=== PATIENT | female | born 1985 | race Caucasian/White ===

== ENCOUNTER 2017-04-26 11:50 | Emergency (ER) | payer BC ==
[2017-04-26 12:00] VITALS: BP 141/83
[2017-04-26] MEDS ORDERED: Aspirin 81 MG Tab.Chew PO ONE (12:03)
[2017-04-26] MEDS ORDERED: Sodium Chloride 0.9% 10 ML Syringe FLUSH PRN (12:03)
--- NOTE | 2017-04-26 12:12 | EDM.PDOC ---
ED HPI GENERAL MEDICAL PROBLEM - General Chief Complaint: Chest Pain Stated Complaint: CHEST PAIN Time Seen by Provider: 04/26/17 11:59 Source of Information: Reports: Patient History Limitations: Reports: No Limitations - History of Present Illness INITIAL COMMENTS - FREE TEXT/NARRATIVE: The patient presents with left sided chest pain. This all started today. She feels short of breath with it. It feels like pressure. She has chills but no documented fever. She does have body aches. She has been coughing for a few days. She does smoke. She has no history of DVT or PE. She has no history of heart disease, HTN, or hypercholesterolemia. Onset: Sudden Duration: Hour(s): Location: Reports: Chest Quality: Reports: Pressure Severity: Moderate Improves with: Reports: None Worsens with: Reports: None Associated Symptoms: Reports: Chest Pain, Cough, cough w sputum, Fever/Chills, Shortness of Breath. Denies: Headaches, Nausea/Vomiting Mid-Sternal Pain Score (Numeric/FACES): 5 - Related Data Allergies Allergy/AdvReac Type Severity Reaction Status Date / Time No Known Allergies Allergy Verified 04/26/17 12:00 Home Meds: Home Meds Levothyroxine [Synthroid] 50 mcg PO DAILY 05/14/16 [History] Past Medical History Genitourinary History: Reports: Renal Calculus Musculoskeletal History: Reports: Other (See Below) Other Musculoskeletal History: chronic hip pain Neurological History: Reports: Headaches, Chronic Psychiatric History: Reports: Anxiety Endocrine/Metabolic History: Reports: Hypothyroidism Social & Family History - Family History Family Medical History: Noncontributory - Tobacco Use Smoking Status *Q: Current Every Day Smoker Years of Tobacco use: 13 Packs/Tins Daily: 0.2 - Caffeine Use Caffeine Use: Reports: None - Recreational Drug Use Recreational Drug Use: No - Living Situation & Occupation Living situation: Reports: Single, with Significant Other Occupation: Employed ED ROS GENERAL - Review of Systems Review Of Systems: See Below Constitutional: Reports: Chills, Malaise, Weakness. Denies: Fever HEENT: Reports: No Symptoms Respiratory: Reports: Shortness of Breath, Cough Cardiovascular: Reports: Chest Pain Endocrine: Reports: Fatigue GI/Abdominal: Reports: No Symptoms : Reports: No Symptoms Musculoskeletal: Reports: No Symptoms ED EXAM, GENERAL - Physical Exam Exam: See Below Exam Limited By: No Limitations General Appearance: Alert, No Apparent Distress Ears: Normal External Exam Nose: Normal Inspection Head: Atraumatic, Normocephalic Neck: Normal Inspection Respiratory/Chest: No Respiratory Distress, Lungs Clear, Normal Breath Sounds Cardiovascular: Regular Rate, Rhythm, No Edema, No Murmur GI/Abdominal: Soft, Non-Tender, No Organomegaly, No Mass Back Exam: Normal Inspection Extremities: Normal Inspection Neurological: Alert, Oriented, No Motor/Sensory Deficits EKG INTERPRETATION EKG Date: 04/26/17 Time: 11:59 Rhythm: NSR Rate (Beats/Min): 89 [place]: Normal P-Wave: Present QRS: Normal ST-T: Normal QT: Normal Course - Vital Signs Last Recorded V/S: Last Vital Signs Temp 97.9 F 04/26/17 11:57 Pulse 89 04/26/17 11:57 Resp 17 04/26/17 11:57 BP 141/83 H 04/26/17 11:57 Pulse Ox 99 04/26/17 11:57 - Orders/Labs/Meds Orders: Active Orders 24 hr Category Date Time Status Cardiac Monitoring [RC] . DIRECTED Care 04/26/17 12:03 Active EKG Documentation Completion [RC] STAT Care 04/26/17 12:06 Active Peripheral IV Care [RC] . DIRECTED Care 04/26/17 12:06 Active Chest 2V [CR] Stat Exams 04/26/17 12:06 Taken Sodium Chloride 0.9% [Saline Flush] Med 04/26/17 12:03 Active 10 ml FLUSH ASDIRECTED PRN Peripheral IV Insertion Adult [OM.PC] Stat Oth 04/26/17 12:03 Ordered Medication Orders Sodium Chloride (Saline Flush) 10 ml FLUSH ASDIRECTED PRN PRN Reason: Keep Vein Open Last Admin: 04/26/17 12:31 Dose: 10 ml Labs: Laboratory Tests 04/26/17 04/26/17 04/26/17 Range/Units 12:45 12:45 12:45 WBC 13.50 H (3.98-10.04) K/mm3 RBC 4.66 (3.98-5.22) M/mm3 Hgb 14.1 (11.2-15.7) gm/L Hct 40.9 (34.1-44.9) % MCV 87.8 (79.4-94.8) fl MCH 30.3 (25.6-32.2) pg MCHC 34.5 (32.2-35.5) g/dl RDW Std Deviation 40.6 (36.4-46.3) fL Plt Count 293 (182-369) K/mm3 MPV 8.9 L (9.4-12.3) fl Neut % (Auto) 73.4 H (34.0-71.1) % Lymph % (Auto) 17.8 L (19.3-51.7) % [place] % (Auto) 7.3 (4.7-12.5) % Eos % (Auto) 1.0 (0.7-5.8) Baso % (Auto) 0.2 (0.1-1.2) % Neut # (Auto) 9.91 H (1.56-6.13) K/mm3 Lymph # (Auto) 2.40 (1.18-3.74) K/mm3 [place] # (Auto) 0.99 H (0.24-0.36) K/mm3 Eos # (Auto) 0.13 (0.04-0.36) K/mm3 Baso # (Auto) 0.03 (0.01-0.08) K/mm3 D-Dimer, Quantitative 0.27 (0.19-0.59) mg/L Sodium 141 (136-145) mEq/L Potassium 3.5 (3.5-5.1) mEq/L Chloride 103 (98-107) mEq/L Carbon Dioxide 24 (21-32) mEq/L Anion Gap 17.5 H (5-15) BUN 10 (7-18) mg/dL Creatinine 0.7 (0.55-1.02) mg/dL Est Cr Clr Drug Dosing 97.21 mL/min Estimated GFR (MDRD) > 60 (>60) mL/min BUN/Creatinine Ratio 14.3 (14-18) Glucose 91 (74-106) mg/dL Calcium 9.1 (8.5-10.1) mg/dL Total Bilirubin 1.1 H (0.2-1.0) mg/dL AST 24 (15-37) U/L ALT 44 (14-59) U/L Alkaline Phosphatase 81 (46-116) U/L Troponin I < 0.017 (0.00-0.056) ng/mL Total Protein 7.7 (6.4-8.2) g/dl Albumin 3.9 (3.4-5.0) g/dl Globulin 3.8 gm/dL Albumin/Globulin Ratio 1.0 (1-2) Meds: Medications Generic Name Dose Route Start Last Admin Trade Name Jin PRN Reason Stop Dose Admin Sodium Chloride 10 ml 04/26/17 12:03 04/26/17 12:31 Saline Flush FLUSH 10 ml ASDIRECTED PRN Administration Keep Vein Open Discontinued Medications Generic Name Dose Route Start Last Admin Trade Name Freq PRN Reason Stop Dose Admin Aspirin 324 mg 04/26/17 12:03 04/26/17 12:31 Aspirin PO 04/26/17 12:04 324 mg ONETIME ONE Administration - Re-Assessments/Exams Free Text/Narrative Re-Assessment/Exam: 04/26/17 12:13 I ordered an IV saline lock, aspirin 324mg PO, CXR, EKG and labs. Her EKG shows a NSR with no acute changes. 04/26/17 14:01 Her CXR looks good. Her WBC was elevated at 13.5. Her D-dimer was negative. Her CMP was negative and her troponin was negative. Departure - Departure Time of Disposition: 14:05 Disposition: Home, Self-Care 01 Condition: Good Clinical Impression: Left sided chest pain, Bronchitis Referrals: Marlen Sanchez PA-C [Primary Care Provider] - 1 Week Forms: ED Department Discharge, ED Return to Work/School Form Additional Instructions: Take the medication as prescribed. Get some rest the next 2 days and drink plenty of fluids. Take motrin or aleve for any pain or fever. - My Orders Last 24 Hours: My Active Orders 04/26/17 12:03 Cardiac Monitoring [RC] . DIRECTED Sodium Chloride 0.9% [Saline Flush] 10 ml FLUSH ASDIRECTED PRN Peripheral IV Insertion Adult [OM.PC] Stat 04/26/17 12:06 EKG Documentation Completion [RC] STAT Peripheral IV Care [RC] . DIRECTED Chest 2V [CR] Stat - Assessment/Plan Last 24 Hours: My Active Orders 04/26/17 12:03 Cardiac Monitoring [RC] . DIRECTED Sodium Chloride 0.9% [Saline Flush] 10 ml FLUSH ASDIRECTED PRN Peripheral IV Insertion Adult [OM.PC] Stat 04/26/17 12:06 EKG Documentation Completion [RC] STAT Peripheral IV Care [RC] . DIRECTED Chest 2V [CR] Stat
--- NOTE | 2017-04-26 14:25 | CR ---
Chest: Two views of the chest were obtained. Comparison: No prior chest x-ray. Right ventricle appears somewhat prominent. Upper mediastinum is normal. Lungs are clear. Bony structures are unremarkable. Impression: 1. Slightly prominent right ventricle is suggested. Echocardiogram could be obtained to further evaluate this possible finding. 2. Nothing acute is otherwise seen on two-view chest x-ray. Diagnostic code #3
== END 2017-04-26 14:19 | disposition home or self-care (01) ==
LOC: JD.ED 11:50
DX: J40 Bronchitis, not specified as acute or chronic (principal); F17.210 Nicotine dependence, cigarettes, uncomplicated; E03.9 Hypothyroidism, unspecified; Z79.899 Other long term (current) drug therapy
CPT/HCPCS: 36415; 71046; 80053; 84484; 85025; 85379; 87804; 93005; 99285; A9270; J7050; 93010; 99283

== ENCOUNTER 2017-05-22 12:07 | Emergency (ER) | payer BC, SELFPAY ==
[2017-05-22 12:25] VITALS: BP 149/89
--- NOTE | 2017-05-22 12:48 | EDM.PDOC ---
ED HPI GENERAL MEDICAL PROBLEM - General Chief Complaint: Respiratory Problem Stated Complaint: SOB/CHEST PAIN FROM COUGH Time Seen by Provider: 05/22/17 12:35 Source of Information: Reports: Patient, RN Notes Reviewed - History of Present Illness INITIAL COMMENTS - FREE TEXT/NARRATIVE: 32-year-old female comes in with severe cough. This started several days ago, is becoming more portion frequent. Pain in her upper chest with coughing. Sleep dry and nonproductive. Occasionally productive of yellowish phlegm. She's had no fever with this. No current headache. No major sore throat other than irritation from coughing. Very mild nasal congestion only. 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: Musculoskeletal History: Reports: Other (See Below) Other Musculoskeletal History: chronic hip pain Neurological History: Reports: Headaches, Chronic Psychiatric History: Reports: Anxiety Endocrine/Metabolic History: Reports: Hypothyroidism Social & Family History - Family History Family Medical History: Noncontributory - Tobacco Use Smoking Status *Q: Current Every Day Smoker Years of Tobacco use: 12 Packs/Tins Daily: 0.3 Used Tobacco, but Quit: No Second Hand Smoke Exposure: No - Caffeine Use Caffeine Use: Reports: Energy Drinks - Recreational Drug Use Recreational Drug Use: No - Living Situation & Occupation Living situation: Reports: Single, with Significant Other Occupation: Employed ED ROS GENERAL - Review of Systems Review Of Systems: See Below Constitutional: Denies: Fever, Chills, Diaphoresis HEENT: Reports: Rhinitis, Throat Pain (Mild irritation from coughing) Respiratory: Reports: Pleuritic Chest Pain, Cough, Sputum (Mostly dry and nonproductive). Denies: Shortness of Breath (Minimal) Cardiovascular: Reports: Chest Pain (With coughing) GI/Abdominal: Denies: Abdominal Pain, Vomiting Musculoskeletal: Reports: No Symptoms Skin: Reports: No Symptoms Neurological: Reports: No Symptoms ED EXAM, GENERAL - Physical Exam Exam: See Below General Appearance: Alert, No Apparent Distress Nose: Normal Inspection Throat/Mouth: Normal Inspection, Normal Oropharynx Head: No: Facial Swelling Neck: Supple, Full Range of Motion Respiratory/Chest: No Respiratory Distress, Lungs Clear, Normal Breath Sounds. No: Rhonchi, Wheezing Cardiovascular: Regular Rate, Rhythm Extremities: Normal Inspection Neurological: Alert, Oriented, No Motor/Sensory Deficits Skin Exam: Warm, Dry, Normal Color Course - Vital Signs Last Recorded V/S: Last Vital Signs Temp 97.8 F 05/22/17 12:22 Pulse 85 05/22/17 12:22 Resp 18 05/22/17 12:22 BP 149/89 H 05/22/17 12:22 Pulse Ox 100 05/22/17 12:22 Departure - Departure Time of Disposition: 12:46 Disposition: Home, Self-Care 01 Condition: Fair Clinical Impression: Bronchitis - Discharge Information Referrals: Marlen Sanchez PA-C [Primary Care Provider] - Forms: ED Department Discharge Additional Instructions: A prior 0 steam as needed, Z-Adelso as prescribed, you may also use albuterol inhaler 2 puffs every 4-6 hours as needed for severe cough or difficulty breathing, you may safely return to work tomorrow as long as you are not running a fever.
== END 2017-05-22 13:05 | disposition home or self-care (01) ==
LOC: JD.ED 12:07
DX: J40 Bronchitis, not specified as acute or chronic (principal); E03.9 Hypothyroidism, unspecified; F41.9 Anxiety disorder, unspecified; F17.210 Nicotine dependence, cigarettes, uncomplicated; Z79.899 Other long term (current) drug therapy; Z87.442 Personal history of urinary calculi
CPT/HCPCS: 99283

== ENCOUNTER 2017-12-08 16:03 | Emergency (ER) | payer BC ==
[2017-12-08 16:41] VITALS: BP 139/72
--- NOTE | 2017-12-08 17:23 | EDM.PDOC ---
ED HPI GENERAL MEDICAL PROBLEM - General Chief Complaint: Abdominal Pain Stated Complaint: STOMACH PAINS Time Seen by Provider: 12/08/17 17:27 Source of Information: Reports: Patient History Limitations: Reports: No Limitations - History of Present Illness INITIAL COMMENTS - FREE TEXT/NARRATIVE: 32 year old female presents for evaluation and treatment of abdominal pain. Reports the pain has been present the last 1-2 weeks. Patient was seen in the clinic yesterday, she had labs and an abdominal xray done. Treated with lopermide, which she has not picked up due to costs concerns. Was given fluids and toradol in the clinic yesterday, reports no relief of symptoms. Patient reports last night her abdominal pain greatly worsened. She contacted the clinic today and was instructed to come to the ER for a CT scan. She is currently experiencing pain to the lower abdomen, bilateral. She reports symptoms of nausea, no vomiting. She reports she has had diarrhea but only one loose stool today, no blood in her stool. Reports a headache and fatigue. No fevers. History of an anal fissure which has improved on its own. Did not require surgery. Experienced pain last night due to the increased stools. No blood. Denies any recent antibiotic usage. Denies any recent travel. States she was in [place] in July. Head Pain Score (Numeric/FACES): 4 Bilateral Lower Abdomen Pain Score (Numeric/FACES): 2 - Related Data Allergies Allergy/AdvReac Type Severity Reaction Status Date / Time No Known Allergies Allergy Verified 04/26/17 12:00 Home Meds: Home Meds Levothyroxine [Synthroid] 50 mcg PO DAILY 05/14/16 [History] Ciprofloxacin [Cipro XR] 500 mg PO DAILY #10 tab.er 12/08/17 [Rx] Dicyclomine [Bentyl] 20 mg PO TID PRN #20 tab 12/08/17 [Rx] Ondansetron [Zofran ODT] 4 mg PO Q6HR PRN 12/08/17 [History] Past Medical History Respiratory History: Reports: Bronchitis, Recurrent Gastrointestinal History: Reports: GI Bleed, Hemorrhoids Genitourinary History: Reports: Renal Calculus 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: Musculoskeletal History: Reports: Other (See Below) Other Musculoskeletal History: chronic hip pain Neurological History: Reports: Headaches, Chronic Psychiatric History: Reports: Anxiety, Depression Endocrine/Metabolic History: Reports: Hypothyroidism Social & Family History - Family History Family Medical History: Noncontributory - Tobacco Use Smoking Status *Q: Current Every Day Smoker Years of Tobacco use: 12 Packs/Tins Daily: 0.5 Used Tobacco, but Quit: No Second Hand Smoke Exposure: Yes - Caffeine Use Caffeine Use: Reports: Energy Drinks - Alcohol Use Days Per Week of Alcohol Use: 3 Number of Drinks Per Day: 6 Total Drinks Per Week: 18 Date of Last Drink: 12/05/17 - Recreational Drug Use Recreational Drug Use: No - Living Situation & Occupation Living situation: Reports: Single, with Significant Other Occupation: Employed ED ROS GENERAL - Review of Systems Review Of Systems: See Below Constitutional: Reports: Chills, Fatigue. Denies: Fever GI/Abdominal: Reports: Abdominal Pain (lower bilateral abdomen), Diarrhea (x1 today), Nausea. Denies: Hematochezia, Melena, Vomiting Neurological: Reports: Headache ED EXAM, GI/ABD - Physical Exam Exam: See Below Exam Limited By: No Limitations General Appearance: Alert, WD/WN, No Apparent Distress, Obese Throat/Mouth: Normal Inspection, Normal Voice, No Airway Compromise Respiratory/Chest: No Respiratory Distress, Lungs Clear, Normal Breath Sounds Cardiovascular: Normal Peripheral Pulses, Regular Rate, Rhythm, No Murmur GI/Abdominal Exam: Normal Bowel Sounds, Soft, Non-Tender Neurological: Alert, Oriented, Normal Cognition Psychiatric: Normal Affect, Normal Mood Skin Exam: Warm, Dry, Normal Color Course - Vital Signs Last Recorded V/S: Last Vital Signs Temp 97.7 F 12/08/17 16:36 Pulse 75 12/08/17 16:36 Resp 20 12/08/17 16:36 BP 139/72 12/08/17 16:36 Pulse Ox 97 12/08/17 16:36 - Orders/Labs/Meds Labs: Laboratory Tests 12/08/17 12/08/17 12/08/17 Range/Units 16:55 16:55 16:55 WBC 8.00 (3.98-10.04) K/mm3 RBC 4.92 (3.98-5.22) M/mm3 Hgb 14.9 (11.2-15.7) gm/L Hct 43.6 (34.1-44.9) % MCV 88.6 (79.4-94.8) fl MCH 30.3 (25.6-32.2) pg MCHC 34.2 (32.2-35.5) g/dl RDW Std Deviation 41.9 (36.4-46.3) fL Plt Count 305 (182-369) K/mm3 MPV 8.8 L (9.4-12.3) fl Neut % (Auto) 67.8 (34.0-71.1) % Lymph % (Auto) 20.6 (19.3-51.7) % [place] % (Auto) 7.4 (4.7-12.5) % Eos % (Auto) 3.3 (0.7-5.8) Baso % (Auto) 0.3 (0.1-1.2) % Neut # (Auto) 5.43 (1.56-6.13) K/mm3 Lymph # (Auto) 1.65 (1.18-3.74) K/mm3 [place] # (Auto) 0.59 H (0.24-0.36) K/mm3 Eos # (Auto) 0.26 (0.04-0.36) K/mm3 Baso # (Auto) 0.02 (0.01-0.08) K/mm3 Sodium 142 (136-145) mEq/L Potassium 3.8 (3.5-5.1) mEq/L Chloride 107 (98-107) mEq/L Carbon Dioxide 28 (21-32) mEq/L Anion Gap 10.8 (5-15) BUN 9 (7-18) mg/dL Creatinine 0.8 (0.55-1.02) mg/dL Est Cr Clr Drug Dosing 86.93 mL/min Estimated GFR (MDRD) > 60 (>60) mL/min BUN/Creatinine Ratio 11.3 L (14-18) Glucose 87 (74-106) mg/dL Calcium 8.7 (8.5-10.1) mg/dL Total Bilirubin 1.1 H (0.2-1.0) mg/dL GGT 35 (5-55) U/L AST 36 (15-37) U/L ALT 43 (14-59) U/L Alkaline Phosphatase 89 (46-116) U/L C-Reactive Protein 2.5 H* (<1.0) mg/dL Total Protein 7.2 (6.4-8.2) g/dl Albumin 3.6 (3.4-5.0) g/dl Globulin 3.6 gm/dL Albumin/Globulin Ratio 1.0 (1-2) Lipase 65 L (73-393) U/L HCG, Qual (NEGATIVE) 12/08/17 Range/Units 16:55 WBC (3.98-10.04) K/mm3 RBC (3.98-5.22) M/mm3 Hgb (11.2-15.7) gm/L Hct (34.1-44.9) % MCV (79.4-94.8) fl MCH (25.6-32.2) pg MCHC (32.2-35.5) g/dl RDW Std Deviation (36.4-46.3) fL Plt Count (182-369) K/mm3 MPV (9.4-12.3) fl Neut % (Auto) (34.0-71.1) % Lymph % (Auto) (19.3-51.7) % [place] % (Auto) (4.7-12.5) % Eos % (Auto) (0.7-5.8) Baso % (Auto) (0.1-1.2) % Neut # (Auto) (1.56-6.13) K/mm3 Lymph # (Auto) (1.18-3.74) K/mm3 [place] # (Auto) (0.24-0.36) K/mm3 Eos # (Auto) (0.04-0.36) K/mm3 Baso # (Auto) (0.01-0.08) K/mm3 Sodium (136-145) mEq/L Potassium (3.5-5.1) mEq/L Chloride (98-107) mEq/L Carbon Dioxide (21-32) mEq/L Anion Gap (5-15) BUN (7-18) mg/dL Creatinine (0.55-1.02) mg/dL Est Cr Clr Drug Dosing mL/min Estimated GFR (MDRD) (>60) mL/min BUN/Creatinine Ratio (14-18) Glucose (74-106) mg/dL Calcium (8.5-10.1) mg/dL Total Bilirubin (0.2-1.0) mg/dL GGT (5-55) U/L AST (15-37) U/L ALT (14-59) U/L Alkaline Phosphatase (46-116) U/L C-Reactive Protein (<1.0) mg/dL Total Protein (6.4-8.2) g/dl Albumin (3.4-5.0) g/dl Globulin gm/dL Albumin/Globulin Ratio (1-2) Lipase (73-393) U/L HCG, Qual Negative (NEGATIVE) Meds: Medications Discontinued Medications Generic Name Dose Route Start Last Admin Trade Name Freq PRN Reason Stop Dose Admin Dicyclomine HCl 20 mg 12/08/17 17:46 12/08/17 18:12 Bentyl IM 12/08/17 17:47 20 mg ONETIME ONE Administration Diphenhydramine HCl 50 mg 12/08/17 19:40 Benadryl IVPUSH 12/08/17 19:41 ONETIME ONE Haloperidol Lactate 5 mg 12/08/17 19:40 Haldol IM 12/08/17 19:41 ONETIME ONE Hydromorphone HCl 0.5 mg 12/08/17 19:39 Dilaudid IVPUSH 12/08/17 19:40 ONETIME ONE Sodium Chloride 1,000 mls @ 999 mls/hr 12/08/17 17:46 12/08/17 18:15 Normal Saline IV 12/08/17 18:46 999 mls/hr ONETIME ONE Administration Ketorolac Tromethamine 30 mg 12/08/17 17:46 12/08/17 18:12 Toradol IVPUSH 12/08/17 17:47 30 mg ONETIME ONE Administration Ondansetron HCl 4 mg 12/08/17 17:46 12/08/17 18:12 Zofran IVPUSH 12/08/17 17:47 4 mg ONETIME ONE Administration Sodium Chloride 10 ml 12/08/17 17:46 12/08/17 18:39 Saline Flush FLUSH 10 ml ASDIRECTED PRN Administration Keep Vein Open Sumatriptan Succinate 25 mg 12/08/17 18:56 12/08/17 19:01 Imitrex PO 12/08/17 18:57 25 mg ONETIME ONE Administration - Re-Assessments/Exams Free Text/Narrative Re-Assessment/Exam: 12/08/17 18:45 Checked on the patient. I reviewed her labs with her. I do not feel she needs a CT scan. She likely has a gastroenteritis causing her discomfort. Recommended symptomatic care including a probiotic. Will give additional medication for a headache. Imitrex ordered. 12/08/17 19:41 Checked on the patient. Reports no relief of headache. Reports continued abdominal discomfort. She has had no vomiting or diarrhea since entering the ED. Offered additional medication for headache and discomfort relief. She declined. She would like to go home. Will discharge at this time. Discharge instructions as documented. Departure - Departure Time of Disposition: 19:49 Disposition: Home, Self-Care 01 Condition: Good Clinical Impression: Gastroenteritis - Discharge Information *PRESCRIPTION DRUG MONITORING PROGRAM REVIEWED*: No *COPY OF PRESCRIPTION DRUG MONITORING REPORT IN PATIENT WILLIAM: No Prescriptions: Ciprofloxacin [Cipro XR] 500 mg PO DAILY #10 tab.er Dicyclomine [Bentyl] 20 mg PO TID PRN #20 tab PRN Reason: Abdominal Pain Instructions: Viral Gastroenteritis, Adult Referrals: Marlen Sanchez PA-C [Primary Care Provider] - Forms: ED Department Discharge Additional Instructions: Recommend a probiotic, these are available OTC. Recommend clear fluids, may advance to a bland diet as tolerated. Recommend bread, rice, applesause, bananas, etc. Follow-up in the clinic if not much better within 1 week. Continue to take the zofran as prescribed as needed for nausea. Take the bentyl 1 tab PO tid prn abdominal pain and cramping. Take the ciprofloxacin if the diarrhea returns. Take 1 tab PO bid x 5 days. Please return to the ER should your symptoms change or worsen.
[2017-12-08] MEDS ORDERED: Ketorolac 30 MG/ML SDV IVPUSH ONE (17:46)
[2017-12-08] MEDS ORDERED: Sodium Chloride 0.9% 10 ML Syringe FLUSH PRN (17:46)
[2017-12-08] MEDS ORDERED: Ondansetron 4 MG/2 ML SDV IVPUSH ONE (17:46)
[2017-12-08] MEDS ORDERED: Dicyclomine 20 MG/2 ML SDV IM ONE (17:46)
[2017-12-08] MEDS ORDERED: Sodium Chloride 0.9% 1,000 ML IV ONE (17:46)
[2017-12-08] MEDS ORDERED: SUMAtriptan 50 MG Tab PO ONE (18:56)
[2017-12-08] MEDS ORDERED: HYDROmorphone 0.5 MG/0.5 ML SYRINGE IVPUSH ONE (19:39)
[2017-12-08] MEDS ORDERED: diphenhydrAMINE 50 MG/ML SDV IVPUSH ONE (19:40)
[2017-12-08] MEDS ORDERED: Haloperidol Lactate 5 MG/ML SDV IM ONE (19:40)
== END 2017-12-08 19:58 | disposition home or self-care (01) ==
LOC: JD.ED 16:03
DX: K52.9 Noninfective gastroenteritis and colitis, unspecified (principal); R51 Headache; E03.9 Hypothyroidism, unspecified; Z79.899 Other long term (current) drug therapy; F17.200 Nicotine dependence, unspecified, uncomplicated
CPT/HCPCS: 36415; 80053; 82977; 83690; 84703; 85025; 86140; 96361; 96372; 96374; 96375; 99284; A9270; J0500; J1885; J2405; J7040; J7050

== ENCOUNTER 2018-05-16 08:11 | Emergency (ER) | payer BC ==
[2018-05-16 08:21] VITALS: BP 150/91
--- NOTE | 2018-05-16 08:39 | EDM.PDOC ---
ED HPI GENERAL MEDICAL PROBLEM - General Chief Complaint: Abdominal Pain Stated Complaint: STOMACH PAIN Time Seen by Provider: 05/16/18 08:39 - History of Present Illness INITIAL COMMENTS - FREE TEXT/NARRATIVE: 33-year-old female presents emergency room with abdominal pain. This pain started 3 days ago. It is midepigastric and extends into the right and left upper quadrants. Not associated with nausea or vomiting more of a burning type pain patient has not tried any Tums or Mylanta or anything in that order she has not had any black or tarry stools no diarrhea. She thought yesterday still they have been a little darker than normal but is normalized today. Patient has had kidney stones in the past this is much different. She has no prior history of any abdominal surgeries. She denies any possibility of . Lower Abdomen Pain Score (Numeric/FACES): 8 - Related Data Allergies Allergy/AdvReac Type Severity Reaction Status Date / Time No Known Allergies Allergy Verified 05/16/18 08:21 Home Meds: Home Meds Famotidine [Pepcid] 20 mg PO Q12H #60 tablet 05/16/18 [Rx] Omeprazole/Sodium Bicarbonate [Omeprazole-Bicarb 20-1,100 Cap] 1 each PO Q24H # 30 capsule 05/16/18 [Rx] Past Medical History Respiratory History: Reports: Bronchitis, Recurrent Gastrointestinal History: Reports: GI Bleed, Hemorrhoids, Other (See Below) Other Gastrointestinal History: anal fissure Genitourinary History: Reports: Renal Calculus 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 History: Reports: Musculoskeletal History: Reports: Other (See Below) Other Musculoskeletal History: chronic hip pain Neurological History: Reports: Headaches, Chronic Psychiatric History: Reports: Anxiety, Depression Endocrine/Metabolic History: Reports: Hypothyroidism, Obesity/BMI 30+ - Infectious Disease History Infectious Disease History: Reports: Chicken Pox Social & Family History - Family History Family Medical History: Noncontributory - Tobacco Use Smoking Status *Q: Current Some Day Smoker Years of Tobacco use: 13 Packs/Tins Daily: 0.1 Used Tobacco, but Quit: No - Caffeine Use Caffeine Use: Reports: Energy Drinks, Soda, Tea - Recreational Drug Use Recreational Drug Use: No - Living Situation & Occupation Living situation: Reports: Single, with Significant Other Occupation: Employed ED ROS GENERAL - Review of Systems Review Of Systems: See Below Constitutional: Reports: No Symptoms HEENT: Reports: No Symptoms Respiratory: Reports: No Symptoms Cardiovascular: Reports: No Symptoms GI/Abdominal: Reports: Abdominal Pain, Constipation. Denies: Bloody Stool, Nausea, Vomiting : Reports: No Symptoms ED EXAM, GI/ABD - Physical Exam Exam: See Below Exam Limited By: No Limitations General Appearance: Alert, No Apparent Distress Head: Atraumatic, Normocephalic Neck: Normal Inspection, Supple, Non-Tender, Full Range of Motion. No: Lymphadenopathy (L), Lymphadenopathy (R) Respiratory/Chest: No Respiratory Distress, Lungs Clear, Normal Breath Sounds Cardiovascular: Regular Rate, Rhythm, No Edema, No Murmur GI/Abdominal Exam: Normal Bowel Sounds, Soft, Other (She has midepigastric tenderness minimal left upper quadrant discomfort but it is present moderate right upper quadrant discomfort over the area of the gallbladder) Back Exam: Normal Inspection. No: CVA Tenderness (L), CVA Tenderness (R) Extremities: No Pedal Edema Course - Vital Signs Last Recorded V/S: Last Vital Signs Temp 36.5 C 05/16/18 08:17 Pulse 93 05/16/18 08:17 Resp 20 05/16/18 08:17 BP 150/91 H 05/16/18 08:17 Pulse Ox 96 05/16/18 08:17 - Orders/Labs/Meds Orders: Active Orders 24 hr Category Date Time Status Abdomen Ltd [US] Stat Exams 05/16/18 09:36 Taken Labs: Laboratory Tests 05/16/18 05/16/18 05/16/18 Range/Units 09:06 09:06 09:40 WBC 10.70 H (3.98-10.04) K/mm3 RBC 4.46 (3.98-5.22) M/mm3 Hgb 13.3 (11.2-15.7) gm/L Hct 39.8 (34.1-44.9) % MCV 89.2 (79.4-94.8) fl MCH 29.8 (25.6-32.2) pg MCHC 33.4 (32.2-35.5) g/dl RDW Std Deviation 42.2 (36.4-46.3) fL Plt Count 268 (182-369) K/mm3 MPV 9.2 L (9.4-12.3) fl Neutrophils % (Manual) 77 H (40-60) % Band Neutrophils % 1 (0-10) % Lymphocytes % (Manual) 14 L (20-40) % Atypical Lymphs % 0 % Monocytes % (Manual) 6 (2-10) % Eosinophils % (Manual) 2 (0.7-5.8) % Basophils % (Manual) 0 L (0.1-1.2) Toxic Granulation 1+ slight Platelet Estimate Adequate RBC Morph Comment Normal Sodium 143 (136-145) mEq/L Potassium 3.7 (3.5-5.1) mEq/L Chloride 106 (98-107) mEq/L Carbon Dioxide 28 (21-32) mEq/L Anion Gap 12.7 (5-15) BUN 9 (7-18) mg/dL Creatinine 0.7 (0.55-1.02) mg/dL Est Cr Clr Drug Dosing 100.55 mL/min Estimated GFR (MDRD) > 60 (>60) mL/min BUN/Creatinine Ratio 12.9 L (14-18) Glucose 120 H (74-106) mg/dL Calcium 8.4 L (8.5-10.1) mg/dL Total Bilirubin 0.3 (0.2-1.0) mg/dL Direct Bilirubin 0.10 (0.0-0.2) mg/dl Indirect Bilirubin 0.20 AST 15 (15-37) U/L ALT 29 (14-59) U/L Alkaline Phosphatase 76 (46-116) U/L Total Protein 6.6 (6.4-8.2) g/dl Albumin 3.2 L (3.4-5.0) g/dl Globulin 3.4 gm/dL Albumin/Globulin Ratio 0.9 L (1-2) Lipase 102 (73-393) U/L Urine Color Yellow (Yellow) Urine Appearance Clear (Clear) Urine pH 7.5 (5.0-8.0) Ur Specific Miranda 1.020 (1.005-1.030) Urine Protein Negative (Negative) Urine Glucose (UA) Trace H (Negative) Urine Ketones Negative (Negative) Urine Occult Blood Negative (Negative) Urine Nitrite Negative (Negative) Urine Bilirubin Negative (Negative) Urine Urobilinogen 0.2 (0.2-1.0) Ur Leukocyte Esterase Negative (Negative) Urine RBC 0-5 (0-5) /hpf Urine WBC 0-5 (0-5) /hpf Ur Epithelial Cells 0-5 (0-5) /hpf Urine Bacteria Rare (FEW) /hpf Urine Mucus Not seen (FEW) /hpf Urine HCG, Qual (NEGATIVE) 05/16/18 Range/Units 09:40 WBC (3.98-10.04) K/mm3 RBC (3.98-5.22) M/mm3 Hgb (11.2-15.7) gm/L Hct (34.1-44.9) % MCV (79.4-94.8) fl MCH (25.6-32.2) pg MCHC (32.2-35.5) g/dl RDW Std Deviation (36.4-46.3) fL Plt Count (182-369) K/mm3 MPV (9.4-12.3) fl Neutrophils % (Manual) (40-60) % Band Neutrophils % (0-10) % Lymphocytes % (Manual) (20-40) % Atypical Lymphs % % Monocytes % (Manual) (2-10) % Eosinophils % (Manual) (0.7-5.8) % Basophils % (Manual) (0.1-1.2) Toxic Granulation Platelet Estimate RBC Morph Comment Sodium (136-145) mEq/L Potassium (3.5-5.1) mEq/L Chloride (98-107) mEq/L Carbon Dioxide (21-32) mEq/L Anion Gap (5-15) BUN (7-18) mg/dL Creatinine (0.55-1.02) mg/dL Est Cr Clr Drug Dosing mL/min Estimated GFR (MDRD) (>60) mL/min BUN/Creatinine Ratio (14-18) Glucose (74-106) mg/dL Calcium (8.5-10.1) mg/dL Total Bilirubin (0.2-1.0) mg/dL Direct Bilirubin (0.0-0.2) mg/dl Indirect Bilirubin AST (15-37) U/L ALT (14-59) U/L Alkaline Phosphatase (46-116) U/L Total Protein (6.4-8.2) g/dl Albumin (3.4-5.0) g/dl Globulin gm/dL Albumin/Globulin Ratio (1-2) Lipase (73-393) U/L Urine Color (Yellow) Urine Appearance (Clear) Urine pH (5.0-8.0) Ur Specific Miranda (1.005-1.030) Urine Protein (Negative) Urine Glucose (UA) (Negative) Urine Ketones (Negative) Urine Occult Blood (Negative) Urine Nitrite (Negative) Urine Bilirubin (Negative) Urine Urobilinogen (0.2-1.0) Ur Leukocyte Esterase (Negative) Urine RBC (0-5) /hpf Urine WBC (0-5) /hpf Ur Epithelial Cells (0-5) /hpf Urine Bacteria (FEW) /hpf Urine Mucus (FEW) /hpf Urine HCG, Qual Negative (NEGATIVE) Meds: Medications Discontinued Medications Generic Name Dose Route Start Last Admin Trade Name Freq PRN Reason Stop Dose Admin Al Hydroxide/Mg Hydroxide 30 0 ml 05/16/18 08:55 05/16/18 09:11 ml/ Lidocaine HCl 15 ml PO 05/16/18 08:56 45 ml ONETIME ONE Administration Famotidine 20 mg 05/16/18 10:06 05/16/18 10:26 Pepcid IVPUSH 05/16/18 10:07 20 mg ONETIME ONE Administration Ondansetron HCl 4 mg 05/16/18 10:34 05/16/18 10:37 Zofran IVPUSH 05/16/18 10:35 4 mg ONETIME ONE Administration Pantoprazole Sodium 80 mg 05/16/18 10:05 05/16/18 10:16 Protonix Iv IVPUSH 05/16/18 10:06 80 mg BOLUS ONE Administration - Re-Assessments/Exams Free Text/Narrative Re-Assessment/Exam: 05/16/18 14:11 She was doing quite a bit better GI cocktail did not seem to help too much perhaps a little she was given Protonix IV and Pepcid IV after this she developed low but nausea but her pain got much better over time she's feeling much better at this time patient did have a gallbladder ultrasound that was negative and we just got the report. Patient would like to go home she does not need anything further for pain she will take the famotidine and PPI. Departure - Departure Time of Disposition: 14:13 Disposition: Home, Self-Care 01 Clinical Impression: Upper abdominal pain, Dyspepsia - Discharge Information Prescriptions: Famotidine [Pepcid] 20 mg PO Q12H #60 tablet Omeprazole/Sodium Bicarbonate [Omeprazole-Bicarb 20-1,100 Cap] 1 each PO Q24H # 30 capsule Referrals: Marlen Sanchez PA-C [Primary Care Provider] - Forms: ED Department Discharge Additional Instructions: Return to the emergency room with any questions problems worsening symptoms. Take medications as directed. Follow-up in the clinic in one week. - My Orders Last 24 Hours: My Active Orders 05/16/18 09:36 Abdomen Ltd [US] Stat - Assessment/Plan Last 24 Hours: My Active Orders 05/16/18 09:36 Abdomen Ltd [US] Stat
[2018-05-16] MEDS ORDERED: Alum Hydrox/Mag Hydrox/Simeth 30 ML, Lidocaine 2% 15 ML PO ONE ×2 (08:55)
[2018-05-16] MEDS ORDERED: Pantoprazole 40 MG Vial IVPUSH ONE (10:05)
[2018-05-16] MEDS ORDERED: Famotidine 20 MG/2 ML SDV IVPUSH ONE (10:06)
[2018-05-16] MEDS ORDERED: Ondansetron 4 MG/2 ML SDV IVPUSH ONE (10:34)
--- NOTE | 2018-05-17 08:46 | US ---
Limited abdominal ultrasound: Multiple real-time images of the right upper abdomen were obtained. Comparison: No prior abdominal imaging, previous CT abdomen and pelvis exam dated 05/30/16. Findings: Liver contains no focal abnormality. Gallbladder not well distended. No shadowing gallstones are seen. No gallbladder wall thickening or biliary duct dilatation is appreciated. Right kidney shows no hydronephrosis or mass and has a length of 10.3 cm. Tail of the pancreas is obscured from bowel gas. Other portions of the pancreas are within normal limits. Impression: 1. Incidental findings as noted above. Note: Preliminary [facility] report states fatty liver, this is not a definite finding on this exam. Previous CT study show no evidence of fatty infiltration. Diagnostic code #1 I agree with preliminary report from [facility], finalized on 05/16/18, 3:05 PM Central Time, code 2
== END 2018-05-16 14:35 | disposition home or self-care (01) ==
LOC: JD.ED 08:11
DX: R10.13 Epigastric pain (principal); E66.9 Obesity, unspecified; F17.210 Nicotine dependence, cigarettes, uncomplicated
CPT/HCPCS: 36415; 76705; 80048; 80076; 81001; 81025; 83690; 85007; 85027; 96374; 96375; 99284; A9270; C9113; J2405; J3490